=== PATIENT | male | born 2005 | race Caucasian/White ===

== ENCOUNTER 2024-08-08 08:16 | Outpatient (AMB) | payer BC, SELFPAY ==
--- NOTE | 2024-08-08 08:22 | MHC.PC.OV ---
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 Allergies No Known Allergies [No Known Allergies*] Allergy (Verified 08/08/24 08:46) Medication List - Last Reconciled 08/08/24 by Abran Saucedo CNP No Known Home Meds Tobacco use date assessed: 08/08/24 Dental Screening Dental Screen Date: 08/08/24 Did you have a dental visit in the last 12 months?: Yes Did you have a dental problem in the last 6 months where you did not have access to dental care?: No Was dental information given to patient?: Patient has dentist HPI HPI Comments History of Present Illness Details New patient Accompanied by his girlfriend Prior PCP:?[facility] Last office visit/CPE: About 5-6 years Acute issue(s): Myopia -Corrected by prescription glasses Dry scab with flakes -He has tried multiple [id number] shampoo, including Nizorall without improvement PMHx: Headache, myopia SurgHx: None FHx: Dad: HTN. PGM: DM. MGM: breast cancer SocHx: Nonsmoker. Does not drink alcohol. No recreational drugs He notes that he is sexually active, in a monogamous relationship, and has no concerns for STD Last eye exam was over over a year ago at [facility]. He will make an appointment for his next eye exam He has never had the tetanus vaccine He has not had the flu vaccine for this season but intends to be vaccinated [facility] Medical History (Updated 08/08/24 @ 09:04 by Abran Saucedo CNP) Headache Family History (Updated 08/08/24 @ 08:35 by Erika Kapadia) Father High blood pressure Paternal Grandmother High blood pressure Diabetes Maternal Grandmother Cancer Social History Housing: House Patient Tobacco Use Status: Never used Tobacco e-Cigarette/Vaping Use: Never Used service: No Current occupational status: employed Current occupation: [employer] Current occupational exposures/hazards: No Cognitive needs: No Hearing needs: No Vision needs: Yes Questionnaire PHQ-9 Over the last 2 weeks, how often have you been bothered by any of the following problems? 1. Little interest or pleasure in doing things: not at all 2. Feeling down, depressed, or hopeless: not at all 3. Trouble falling or staying asleep, or sleeping too much: several days 4. Feeling tired or having little energy: several days 5. Poor appetite or overeating: not at all 6. Feeling bad about yourself - or that you are a failure or have let yourself or your family down: not at all 7. Trouble concentrating on things, such as reading the newspaper or watching television: not at all 8. Moving or speaking so slowly that other people could have noticed. Or the opposite - being so fidgety or restless that you have been moving around a lot more than usual: not at all 9. Thoughts that you would be better off or of hurting yourself in some way: not at all Total score: 2 Depression Screening Interpretation: Negative Depression Screening Done: Yes 39790 - PHQ-9 Billing: Yes Source: Developed by Drs. Dhruv Hassan, Anny Batres, Gerard Camara and colleagues, with an educational antonio from [employer]. Thrive Questionnaire Date Thrive assessed: 08/08/24 I am a: Patient What is your living situation today?: I have a steady place to live Within the past 12 months, did the food you bought not last and you didn't have the money to get more?: Never true Within the past 12 months, did you worry whether your food would run out before you got money to buy more?: Never true Do you have trouble paying for medicines?: No Do you have trouble getting transportation to medical appointments?: No Do you have trouble paying your heating and electricity bill?: No Do you have trouble taking care of your child, family member or friend?: No Do you have trouble with day-to-day activities such as bathing, preparing meals, shopping, managing finances, etc.?: No Are you currently unemployed and looking for a job?: No Are you interested in more education?: Yes Please select the resources that you would like help with: None Currently or been in a relationship where the following occur: No concerns reported THRIVE Score: 0 AUDIT C Alcohol Use Questionnaire (AUDIT-C) 1. How often do you have a drink containing alcohol?: Never Total Score: 0 Score Reviewed/Action Taken: Yes ANABELLA-7 AMB Questionnaire ANABELLA-7 Date ANABELLA - 7 assessed: 08/08/24 Feeling nervous, anxious, or on edge: 0 = Not at all Not being able to stop or control worryin = Not at all Worrying too much about different things: 0 = Not at all Trouble relaxin = Not at all Being so restless that it is hard to sit still: 0 = Not at all Becoming easily annoyed or irritable: 0 = Not at all Feeling afraid as if something awful might happen: 0 = Not at all Total ANABELLA-7 score (0-4 normal; 5-9 mild; 10-14 moderate; 15-21 severe): 0 Source: Developed by Drs. Dhruv Hassan, Anny Batres, Gerard Camara and colleagues, with an educational antonio from [employer]. ANABELLA-7 Assessment Billing ANABELLA-7 Assessment Tool: ANABELLA-7 Assessment 80193 Review of Systems Const Details: Denies chills, Denies fatigue, Denies fever(s), Denies headache(s) and Denies weakness HEENT Denies change in vision, Denies dizziness, Denies headache(s), Denies hearing loss, Denies nasal congestion, Denies sinus pain, Denies sinus pressure and Denies sore throat Card Denies chest pain, Denies lightheadedness, Denies dyspnea and Denies other (palpitations) Resp Denies cough, Denies dyspnea and Denies wheezing GI Denies abdominal pain, Denies melena, Denies hematochezia, Denies change in bowel habits, Denies dyspepsia and Denies nausea Denies hematuria and Denies dysuria Musc Denies abnormal gait, Denies myalgias, Denies arthralgias, Denies numbness and Denies tingling Skin/Breast Denies rash, Denies unusual bruising and Denies wounds Neuro Denies abnormal gait, Denies dizziness, Denies headache(s), Denies memory loss, Denies numbness, Denies Sensory deficit (Neuro), Denies tingling and Denies weakness Psych Denies anxiety, Denies depression and Denies memory loss Endo Denies cold intolerance, Denies fatigue, Denies heat intolerance, Denies polydipsia and Denies polyuria Felton/Lymph Denies easy bleeding and Denies easy bruising Aller/Immun Denies wheezing Physical exam (Primary Care) Vital Signs: Last Vital Signs Temp 98.0 F 08/08/24 08:27 Pulse 67 08/08/24 08:27 Resp 16 08/08/24 08:27 BP 118/78 08/08/24 08:27 Pulse Ox 98 08/08/24 08:27 Oxygen Delivery Method Room Air 08/08/24 08:27 BMI result Body Mass Index 24.1 Tobacco/Smoking Status: Tobacco use Status Tobacco use date assessed 08/08/24 08/08/24 08:27 Patient Tobacco Use Status Never used Tobacco 08/08/24 08:27 e-Cigarette/Vaping Use Never Used 08/08/24 08:27 PHQ-9: PHQ-9 Score PHQ-9: Total score 2 08/08/24 08:47 Depression Screening Interpretation: Negative Thrive Assessment: Date of Thrive Assessment Date Thrive assessed 08/08/24 08/08/24 08:37 Currently or been in a relationship where the following occur: No concerns reported Const Other: General: no acute distress, well developed, alert and awake Nutritional Appearance: well nourished Orientation/consciousness: patient oriented x3 HENMT Head: Yes normocephalic and Yes atraumatic. Dry, yellow flakes to his entire scalp. Hair on head about 3 inches long Ears: hearing grossly normal bilaterally and TM's normal bilaterally General nose exam: Normal external nose present and Normal nares present Mouth: Normal oral and palatal mucosa present and moist mucous membranes Teeth and gingiva: dentition normal Throat: Yes oropharynx normal Eyes Pupils: Equal, round and reactive pupils present and Pupil accommodation reflex normal EOM: EOMs intact bilaterally Neck Neck: Yes normal visual inspection, Yes no lymphadenopathy and Yes trachea midline Thyroid: Thyroid normal Carotids: no bruits Lymphatic: no lymphadenopathy noted Chest Chest palpation & inspection: normal inspection of the chest Resp Effort & Inspection: normal respiratory effort Auscultation: clear to auscultation bilaterally Cardio Rate: regular rate Rhythm: regular rhythm Heart sounds: S1 normal heart sound present, S2 normal heart sound present, no gallops, no murmurs and no rubs Bruits: no abdominal aortic bruits and no carotid bruits GI Palpation (GI): No Abdominal aortic bruit present, Soft to palpation, nontender, No hepatosplenomegaly present and No Rebound tenderness present Auscultation: normal bowel sounds General: Yes no CVA tenderness Back/Spine/Pelvis Back: no CVA tenderness Cervical Spine: cervical ROM normal and No Cervical spine tenderness Thoracic/Lumbar Spine: thoraco-lumbar ROM normal, No pain with thoraco-lumbar ROM, No thoracic spinal tenderness and No lumbar spinal tenderness Skin General: warm and dry. Normal skin color. Normal skin turgor Lesions: no lesions Rashes: no rashes Trauma: no lacerations or abrasions Wounds: no wounds Nails: normal Neuro General: patient oriented x3, gait normal and CN's II-XI intact bilaterally Cranial nerves: Yes Equal, round and reactive pupils present Cognition (Neuro): normal cognition Gait exam (Neuro): Normal gait present Motor exam (neuro): 5/5 motor strength present throughout Sensory Exam: No Sensory deficit (Neuro) Deep tendon reflexes (DTR's): Right patellar reflex intensity grade: 2+ and Left patellar reflex intensity grade: 2+ Extrem General: Yes normal to inspection, No edema and No calf tenderness Psych Appearance: grossly normal Affect: normal affect Attitude: cooperative Thought process: Normal thought process present Immunizations Boostrix Tdap 2.5 Lf unit-8 mcg-5 Lf/0.5 mL intramuscular syringe Performing Provider: Abran Saucedo CNP Performing Location: [facility] Administered by: Alesha Cueva RN on 08/08/24 09:10 Dose Route Admin Location Dispensed Lot Number Expiration Date [facility] [employer] 0.5 mL IM Left Deltoid 0.5 mL [id number] 08/17/26 65540-789-10 [employer] VIS Given Date VIS Provided VIS Publication Date 08/08/24 Single Vaccine 21 Eligibility Eligibility Date Funding Source Not [facility] Eligible 08/08/24 Private Assessment and Plan Assessment & Plan (1) Normal physical examination, routine: Code(s): Z00.00 - Encounter for general adult medical examination without abnormal findings Plan: No significant physical restrictions or limitations noted Healthy diet and routine exercise encouraged Advised to get lab work done in follow-up for a telehealth visit in 2-3 weeks for labs review Return with symptoms or concerns Verbalized understanding and agreed with the treatment plan (2) Dandruff: Code(s): L21.0 - Seborrhea capitis Plan: Dry, yellow flakes to his entire scalp. Hair on head about 3 inches long Advised to trial Selsun Blue shampoo 2-3 times weekly Follow-up if dandruff does not resolve Verbalized understanding and agreed with the plan (3) Myopia: Code(s): H52.10 - Myopia, unspecified eye Plan: Corrected by prescription glasses His last eye exam was over a year ago. He will call and schedule an appointment for an eye exam (4) Vaccine for tetanus toxoid: Code(s): Z23 - Encounter for immunization Plan: He has never had the tetanus vaccine Tetanus vaccine administered by our office nurse today (5) Vaccine counseling: Code(s): Z71.85 - Encounter for immunization safety counseling Plan: He has not had the flu vaccine for this season but intends to be vaccinated Instructed on importance of vaccination and encouraged to get vaccinated for the flu. He may get the vaccine from his local pharmacy Verbalized understanding and agreed with the plan (6) Laboratory tests ordered as part of a complete physical exam (CPE): Code(s): Z00.00 - Encounter for general adult medical examination without abnormal findings Plan: Fasting labs ordered as part of a complete physical exam. Advised to fast for at least 10 hours before getting labs drawn. May drink water Verbalized understanding and agreed with treatment plan. Orders: Orders Complete Blood Count Auto Diff Today Z00.00 - Encounter for general adult medical examination without abnormal findings Comprehensive [place]. Panel Fast Today Z00.00 - Encounter for general adult medical examination without abnormal findings Lipid Panel Today Z00.00 - Encounter for general adult medical examination without abnormal findings TDaP Immunization Today Z23 - Encounter for immunization TSH reflex Free T4 Today Z00.00 - Encounter for general adult medical examination without abnormal findings UA CC w/rflx Micro + Cult Today Z00.00 - Encounter for general adult medical examination without abnormal findings Medications: New Boostrix Tdap (diphth,pertus(acell),tetanus) 0.5 mL IM ONCE 0.5 mL 0RF NS Z23 - Encounter for immunization Coding Level of Care Code New Pt Level 3 (61615) New Pt Prev Care 18-39yr(91652 Diagnoses Normal physical examination, routine Z00.00 Dandruff L21.0 Myopia H52.10 Vaccine for tetanus toxoid Z23 Vaccine counseling Z71.85 Laboratory tests ordered as part of a complete physical exam (CPE) Z00.00 Additional Codes ANABELLA-7 Assessment Billing - ANABELLA-7 Assessment Tool: ANABELLA-7 Assessment 25529 ([id number])
[2024-08-08 08:27] VITALS: BP 118/78; PULSE 67; RESP 16; TEMP 36.7; O2SAT 98; BMI 24.1
== END 2024-08-08 09:13 | disposition home or self-care (01) ==
PROVIDERS: PCP Pediatrics; Visit Provider Nurse Practitioner Family
DX: Z00.00 Encounter for general adult medical examination without abnormal findings (principal); L21.0 Seborrhea capitis; Z23 Encounter for immunization; Z71.85 Encounter for immunization safety counseling

== ENCOUNTER → 2024-08-08 08:16 | Outpatient (BNVA) | payer BC, SELFPAY | PROVIDERS: PCP Pediatrics; Visit Provider Nurse Practitioner Family | DX: Z00.01 Encounter for general adult medical examination with abnormal findings (principal); L21.0 Seborrhea capitis; H52.10 Myopia, unspecified eye; Z71.85 Encounter for immunization safety counseling; Z23 Encounter for immunization | CPT/HCPCS: 90471; 90715; 96127 ==

== ENCOUNTER 2024-10-01 09:53 | Outpatient (REF) | payer BC, SELFPAY ==
[2024-10-01 10:28] LABS: MANUAL DIFF FLAG NO
[2024-10-01 11:11] LABS: Basophils Percent Auto 0.6 % (0-2); Eosinophils Absolute Auto 0.1 X10*3/uL (0.0-0.4); Eosinophils Percent Auto 1.2 % (0-4); Hematocrit 43.4 % (42.0-52.0); Hemoglobin 14.9 g/dl (14.0-18.0); Imm Gran Abs Auto 0.05 X10*3/uL (0.00-0.03); Imm Gran Pct Auto 0.8 % (0.0-0.4); Lymphocytes Absolute Auto 2.3 X10*3/uL (1.2-4.9); Lymphocytes Percent Auto 34.2 % (20-40); Mean Corpuscular HGB Conc 34.3 g/dl (31.0-36.0); Mean Corpuscular Hemoglobin 28.5 pg (27.0-33.0); Monocytes Absolute Auto 0.6 X10*3/uL (0.1-1.2); Neutrophils Absolute Auto 3.6 x10*3/uL (2.0-8.3); Neutrophils Percent Auto 54.2 % (45-73); Platelet Count 225 X10*3/uL (160-400); Red Blood Count 5.23 X10*6/uL (4.60-5.80); Red Cell Distribution Width 12.7 % (11.0-16.0); White Blood Count 6.6 X10*3/uL (4.8-10.8)
[2024-10-01 11:30] LABS: Appearance Urine Clear; Color Urine Yellow; Glucose Urine UA Negative (Negative); Leukocyte Esterase Urine Negative (Negative); Nitrite Urine Negative (Negative); PH 8.5 (5.0-9.0); Specific Gravity - Urine 1.025 (1.005-1.025); Urine Blood Negative (Negative); Urine Ketones Negative (Negative); Urine Protein Trace mg/dL (Neg-Trace)
[2024-10-01 11:49] LABS: Alanine Aminotransferase 22 U/L (0-40); Albumin Level 4.6 g/dL (3.5-5.0); Alkaline Phosphatase 78 U/L (39-117); Anion Gap 11 (12-20); Aspartate Amino Transferase 24 U/L (5-37); Blood Urea Nitrogen 11 mg/dL (9-16); Carbon Dioxide 26 mmol/L (22-29); Chloride 106 mmol/L (96-108); Cholesterol 193 mg/dL (<200); Estimated Glomerular Filt Rate > 60; Glucose Fasting 95 mg/dL (60-99); HDL Cholesterol 49 mg/dL (>40); LDL Cholesterol Calculated 126 mg/dL (<100); Potassium 3.8 mmol/L (3.3-5.1); Sodium 139 mmol/L (135-145); Total Protein 7.6 g/dL (6.5-8.0); Triglycerides 94 mg/dL (<150)
[2024-10-01 12:06] LABS: TSH reflex Free T4 0.77 uIU/mL (0.32-4.0)
== END 2024-10-01 09:54 | disposition home or self-care (01) ==
LOC: HO.LAB 09:53
PROVIDERS: PCP Nurse Practitioner Family; Visit Provider Nurse Practitioner Family
DX: Z00.00 Encounter for general adult medical examination without abnormal findings (principal)
CPT/HCPCS: 36415; 80053; 80061; 81003; 84443; 85025

== ENCOUNTER 2024-11-10 14:19 | Outpatient (AMB) | payer BC, SELFPAY ==
--- NOTE | 2024-11-10 14:04 | MHC.PC.OV ---
Intake Visit Reasons: lab review Intake Note: patient here for telehealth for lab review. 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 He started exercising. However, he has been consuming significant amount of fast foods. He offers no complaints and denies acute symptoms at this time. [facility] Medical History (Updated 11/10/24 @ 14:51 by Abran Saucedo CNP) Headache Family History (Updated 08/08/24 @ 08:35 by Erika Kapadia MA) Father High blood pressure Paternal Grandmother High blood pressure Diabetes Maternal Grandmother Cancer Social History Housing: House Patient Tobacco Use Status: Never used Tobacco e-Cigarette/Vaping Use: Never Used service: No Current occupational status: employed Current occupation: [employer] Current occupational exposures/hazards: No Cognitive needs: No Hearing needs: No Vision needs: Yes Questionnaire Thrive Questionnaire Date Thrive assessed: 08/08/24 ANABELLA-7 AMB Questionnaire ANABELLA-7 Date ANABELLA - 7 assessed: 08/08/24 Source: Developed by Drs. Dhurv Hassan, Anny Batres, Gerard Camara and colleagues, with an educational antonio from [employer]. Review of Systems Const Details: Const Denies chills, Denies fatigue, Denies fever(s), Denies headache(s) and Denies weakness ENT Denies dizziness and Denies headache(s) Card Denies chest pain, Denies lightheadedness, Denies dyspnea and Denies other (Palpitations) Resp Denies cough, Denies dyspnea, Denies wheezing and Denies other ( shortness of breath) GI Denies abdominal pain, Denies melena, Denies hematochezia, Denies change in bowel habits, Denies dyspepsia and Denies nausea Denies hematuria and Denies dysuria Musc Denies abnormal gait, Denies myalgias, Denies arthralgias, Denies numbness and Denies tingling Skin/Breast Denies rash, Denies unusual bruising and Denies wounds Neuro Denies abnormal gait, Denies dizziness, Denies headache(s), Denies memory loss, Denies numbness, Denies Sensory deficit (Neuro), Denies tingling and Denies weakness Psych Denies anxiety, Denies depression, Denies memory loss Endo Denies cold intolerance, Denies fatigue, Denies heat intolerance, Denies polydipsia and Denies polyuria Aller/Immun Denies wheezing Physical exam (Primary Care) Tobacco/Smoking Status: Tobacco use Status Tobacco use date assessed 11/10/24 11/10/24 14:06 Patient Tobacco Use Status Never used Tobacco 11/10/24 14:06 e-Cigarette/Vaping Use Never Used 11/10/24 14:06 Thrive Assessment: Date of Thrive Assessment Date Thrive assessed 08/08/24 11/10/24 14:06 Const Other: Telehealth visit. No physical exam Telehealth Telehealth Telehealth Platform: Telephone Location of provider rendering services: practice address Location of patient: address on file Patient Identification confirmed using: Name, : Yes Telehealth method: voice only Patient verbally consented to treatment: Yes Patient verbally consented to billing insurance company: Yes Patient informed of any privacy concerns related to visit: Yes Coding Level of Care Code Tele Est Pt Level 3 (08077) Diagnoses Elevated LDL cholesterol level E78.00 Time Spent (min) 10 Assessment & Plan Assessment & Plan (1) Elevated LDL cholesterol level: Code(s): E78.00 - Pure hypercholesterolemia, unspecified Category: Medical Plan: Recent lab results reviewed with the patient; unremarkable findings except for slightly elevated LDL, 126. Total cholesterol is on the high end of normal, 193. Advised to limit foods high in saturated fat and avoid foods high in trans fat. Routine exercise encouraged. Will check lipid panel levels periodically or if symptomatic. Follow-up for an extended physical exam on or after 08/08/2025. Return with symptoms or concerns. Verbalized understanding and agreed with the treatment plan.
== END 2024-11-10 15:03 | disposition home or self-care (01) ==
LOC: HO.HMCFM 14:19
PROVIDERS: PCP Nurse Practitioner Family; Visit Provider Nurse Practitioner Family
DX: E78.00 Pure hypercholesterolemia, unspecified (principal)

== ENCOUNTER → 2024-11-10 14:19 | Outpatient (BNVA) | payer BC, SELFPAY | PROVIDERS: PCP Nurse Practitioner Family; Visit Provider Nurse Practitioner Family ==

== ENCOUNTER 2025-09-08 08:05 | Outpatient (REF) | payer BC, SELFPAY ==
[2025-09-08 11:28] LABS: MANUAL DIFF FLAG NO
[2025-09-08 11:37] LABS: Hematocrit 43.9 % (42.0-52.0); Hemoglobin 14.2 g/dl (14.0-18.0); Imm Gran Abs Auto 0.40 X10*3/uL (0.00-0.03); Imm Gran Pct Auto 4.0 % (0.0-0.4); Lymphocytes Absolute Auto 1.9 X10*3/uL (1.2-4.9); Mean Corpuscular HGB Conc 32.3 g/dl (31.0-36.0); Mean Corpuscular Hemoglobin 27.5 pg (27.0-33.0); Mean Corpuscular Volume 85.1 fL (80.0-98.0); NRBC Abs Auto 0.000 X10*3/uL (0.0-0.012); NRBC Pct Auto 0.0 /100WBC (0.0-0.2); Platelet Count 290 X10*3/uL (160-400); Red Blood Count 5.16 X10*6/uL (4.60-5.80); White Blood Count 10.1 X10*3/uL (4.8-10.8)
[2025-09-08 11:41] LABS: Appearance Urine Clear; Glucose Urine UA Negative (Negative); PH 8.0 (5.0-9.0); Specific Gravity - Urine 1.015 (1.005-1.025)
[2025-09-08 12:03] LABS: Alanine Aminotransferase 18 U/L (0-40); Albumin Level 4.9 g/dL (3.5-5.0); Alkaline Phosphatase 69 U/L (39-117); Anion Gap 14 (12-20); Aspartate Amino Transferase 24 U/L (5-37); Blood Urea Nitrogen 9 mg/dL (9-16); Calcium 9.6 mg/dL (8.4-10.2); Carbon Dioxide 28 mmol/L (22-29); Chloride 104 mmol/L (96-108); Cholesterol 193 mg/dL (<200); Estimated Glomerular Filt Rate > 60; HDL Cholesterol 44 mg/dL (>40); Potassium 3.8 mmol/L (3.3-5.1); Sodium 142 mmol/L (135-145); Total Protein 8.1 g/dL (6.5-8.0); Triglycerides 98 mg/dL (<150)
[2025-09-08 12:30] LABS: Microalbum/Creatinine Ratio Ur 9.1 ug/mg cr (<30)
== END 2025-09-08 08:06 | disposition home or self-care (01) ==
LOC: HO.WFDLDS 08:05
PROVIDERS: PCP Nurse Practitioner Family; Visit Provider Nurse Practitioner Family
DX: Z00.00 Encounter for general adult medical examination without abnormal findings (principal); G47.9 Sleep disorder, unspecified; Z23 Encounter for immunization
CPT/HCPCS: 36415; 80053; 80061; 81003; 82043; 82306; 82570; 84443; 85025; 90471; 90656; 96127

== ENCOUNTER 2025-09-08 08:05 | Outpatient (AMB) | payer BC, SELFPAY ==
--- NOTE | 2025-09-08 08:06 | A.OFFPC_ITS ---
Vital Signs 09/08/25 08:14 Height 5 ft 7 in Weight 156 lb BMI 24.4 BP 112/64 Blood Pressure Location Rt brachial Position Sitting Respiration 16 Pulse 75 Pulse Source Pulse Oximeter Temp 97.8 F Temp Source Oral Pulse Oximetry (%) 96 Oxygen Delivery Method Room Air Intake Visit Reasons: Annual PE Intake Note: patient here for CPE [employer] Required: No Allergies No Known Allergies (No Known Allergies*) Allergy (Verified 09/08/25 08:18) Medication List - Last Reconciled 09/08/25 by Abran Saucedo CNP No Known Home Meds Tobacco use date assessed: 09/08/25 Dental Screening Dental Screen Date: 09/08/25 Did you have a dental visit in the last 12 months?: No Did you have a dental problem in the last 6 months where you did not have access to dental care?: No Was dental information given to patient?: Patient has dentist HPI HPI Comments History of Present Illness Details 20-year-old male, accompanied by his gir lfriend, presents for an extended physical exam. He is not on prescription medication. Denies current medical or psychiatric symptoms. Acute issue(s) - None Past Medical History - Headache, myopia, elevated LDL Social History - Nonsmoker. History of vaping 2-3 years ago. Does not drink alcohol. Denies recreational drug use - He generally eats unhealthy - costumes lots of fast foods. Exercises routinely. Reports difficulty falling and staying asleep - sleeps an average of 6 hours, snores all the times, never had a sleep study - He is sexually active, in a monogamous relationship, and has no concern for STDs Health maintenance - Last eye exam was in 05/2025 with [facility]. He has an eye exam scheduled with them today - Last dental visit was in 11/2023; yobany raged to schedule an appointment with his dentist for routine dental care - Last Tdap was in 08/08/2024 - Has not been vaccinated for the flu ; receives vaccination today Specialists - None PFSH Medical History Headache Family History Father High blood pressure Paternal Grandmother High blood pressure Diabetes Maternal Grandmother Cancer Social History Housing: House Patient Tobacco Use Status: Never used Tobacco e-Cigarette/Vaping Use: Never Used Second Hand Smoke Exposure: No service: No Current occupational status: employed Current occupation: [employer] Current occupational exposures/hazards: No Cognitive needs: No Hearing needs: No Vision needs: Yes Questionnaire PHQ-9 Over the last 2 weeks, how often have you been bothered by any of the following problems? 1. Little interest or pleasure in doing things: several days 2. Feeling down, depressed, or hopeless: several days 3. Trouble falling or staying asleep, or sleeping too much: nearly every day 4. Feeling tired or having little energy: several days 5. Poor appetite or overeating: not at all 6. Feeling bad about yourself - or that you are a failure or have let yourself or your family down: several days 7. Trouble concentrating on things, such as reading the newspaper or watching television: not at all 8. Moving or speaking so slowly that other people could have noticed. Or the opposite - being so fidgety or restless that you have been moving around a lot more than usual: not at all 9. Thoughts that you would be better off or of hurting yourself in some way: not at all Total score: 7 Depression Screening Interpretation: Positive Depression Screening Done: Yes 99695 - PHQ-9 Billing: Yes Source: Developed by Drs. Dhruv Hassan, Anny Batres, Gerard Camara and colleagues, with an educational antonio from [employer]. Thrive Questionnaire Date Thrive assessed: 09/08/25 I am a: Patient What is your living situation today?: I have a steady place to live Within the past 12 months, did the food you bought not last and you didn't have the money to get more?: I choose not to answer this question Within the past 12 months, did you worry whether your food would run out before you got money to buy more?: I choose not to answer this question Do you have trouble paying for medicines?: I choose not to answer this question Do you have trouble getting transportation to medical appointments?: I choose not to answer this question Do you have trouble paying your heating and electricity bill?: I choose not to answer this question Do you have trouble taking care of your child, family member or friend?: I choose not to answer this question Do you have trouble with day-to-day activities such as bathing, preparing meals, shopping, managing finances, etc.?: I choose not to answer this question Are you currently unemployed and looking for a job?: I choose not to answer this question Are you interested in more education?: I choose not to answer this question Please select the resources that you would like help with: None Currently or been in a relationship where the following occur: I choose not to answer THRIVE Score: 0 AUDIT C Alcohol Use Questionnaire (AUDIT-C) 1. How often do you have a drink containing alcohol?: Never 3. How often do you have six or more drinks on one occasion?: Never Total Score: 0 Score Reviewed/Action Taken: Yes ANABELLA-7 AMB Questionnaire ANABELLA-7 Date ANABELLA - 7 assessed: 09/08/25 Feeling nervous, anxious, or on edge: 1 = Several days Not being able to stop or control worryin = Several days Worrying too much about different things: 1 = Several days Trouble relaxin = Several days Being so restless that it is hard to sit still: 1 = Several days Becoming easily annoyed or irritable: 2 = More than half the days Feeling afraid as if something awful might happen: 1 = Several days Total ANABELLA-7 score (0-4 normal; 5-9 mild; 10-14 moderate; 15-21 severe): 8 Source: Developed by Drs. Dhruv Hassan, Anny Batres, Gerard Camara and colleagues, with an educational antonio from [employer]. ANABELLA-7 Assessment Billing ANABELLA-7 Assessment Tool: ANABELLA-7 Assessment 73824 Review of Systems Const Details: Denies chills, Denies fatigue, Denies fever(s), Denies headache(s) and Denies weakness HEENT Denies change in vision, Denies dizziness, Denies headache(s), Denies hearing loss, Denies nasal congestion, Denies sinus pain, Denies sinus pressure and Denies sore throat Card Denies chest pain, Denies lightheadedness, Denies dyspnea and Denies other (palpitations) Resp Denies cough, Denies dyspnea and Denies wheezing GI Denies abdominal pain, Denies melena, Denies hematochezia, Denies change in bowel habits, Denies dyspepsia and Denies nausea Denies hematuria and Denies dysuria Musc Denies abnormal gait, Denies myalgias, Denies arthralgias, Denies numbness and Denies tingling Skin/Breast Denies rash, Denies unusual bruising and Denies wounds Neuro Denies abnormal gait, Denies dizziness, Denies headache(s), Denies memory loss, Denies numbness, Denies Sensory deficit (Neuro), Denies tingling and Denies weakness Psych Denies anxiety, Denies depression and Denies memory loss Endo Denies cold intolerance, Denies fatigue, Denies heat intolerance, Denies polydipsia and Denies polyuria Felton/Lymph Denies easy bleeding and Denies easy bruising Aller/Immun Denies wheezing Physical exam (Primary Care) Vital Signs: Last Vital Signs Temp 97.8 F 09/08/25 08:14 Pulse 75 09/08/25 08:14 Resp 16 09/08/25 08:14 BP 112/64 09/08/25 08:14 Pulse Ox 96 09/08/25 08:14 Oxygen Delivery Method Room Air 09/08/25 08:14 BMI result Body Mass Index 24.4 Tobacco/Smoking Status: Tobacco use Status Tobacco use date assessed 09/08/25 09/08/25 08:13 Patient Tobacco Use Status Never used Tobacco 09/08/25 08:09 e-Cigarette/Vaping Use Never Used 09/08/25 08:09 PHQ-9: PHQ-9 Score PHQ-9: Total score 7 09/08/25 08:45 Depression Screening Interpretation: Positive Thrive Assessment: Date of Thrive Assessment Date Thrive assessed 09/08/25 09/08/25 08:09 Currently or been in a relationship where the following occur: I choose not to answer Const Other: General: no acute distress, well developed, alert and awake Nutritional Appearance: well nourished Orientation/consciousness: patient oriented x3 HENMT Head: Yes normocephalic and Yes atraumatic Ears: hearing grossly normal bilaterally and TM's normal bilaterally General nose exam: Normal external nose present and Normal nares present Mouth: Normal oral and palatal mucosa present and moist mucous membranes Teeth and gingiva: dentition normal Throat: Yes oropharynx normal Eyes Pupils: Equal, round and reactive pupils present and Pupil accommodation reflex normal EOM: EOMs intact bilaterally Neck Neck: Yes normal visual inspection, Yes no lymphadenopathy and Yes trachea midline Thyroid: Thyroid normal Carotids: no bruits Lymphatic: no lymphadenopathy noted Chest Chest palpation & inspection: normal inspection of the chest Resp Effort & Inspection: normal respiratory effort Auscultation: clear to auscultation bilaterally Cardio Rate: regular rate Rhythm: regular rhythm Heart sounds: S1 normal heart sound present, S2 normal heart sound present, no gallops, no murmurs and no rubs Bruits: no abdominal aortic bruits and no carotid bruits GI Palpation (GI): No Abdominal aortic bruit present, Soft to palpation, nontender, No hepatosplenomegaly present and No Rebound tenderness present Auscultation: normal bowel sounds General: Yes no CVA tenderness Back/Spine/Pelvis Back: no CVA tenderness Cervical Spine: cervical ROM normal and No Cervical spine tenderness Thoracic/Lumbar Spine: thoraco-lumbar ROM normal, No pain with thoraco-lumbar ROM, No thoracic spinal tenderness and No lumbar spinal tenderness Skin General: warm and dry. Normal skin color. Normal skin turgor Lesions: no lesions Rashes: no rashes Trauma: no lacerations or abrasions Wounds: no wounds Nails: normal Neuro General: patient oriented x3, gait normal and CN's II-XI intact bilaterally Cranial nerves: Yes Equal, round and reactive pupils present Cognition (Neuro): normal cognition Gait exam (Neuro): Normal gait present Motor exam (neuro): 5/5 motor strength present throughout Sensory Exam: No Sensory deficit (Neuro) Deep tendon reflexes (DTR's): Right patellar reflex intensity grade: 2+ and Left patellar reflex intensity grade: 2+ Extrem General: Yes normal to inspection, No edema and No calf tenderness Psych Appearance: grossly normal Affect: normal affect Attitude: cooperative Thought process: Normal thought process present Office Procedures Flu Questionnaire Does the patient have a severe egg allergy?: No Does the patient have severe life threatening allergies?: No Does the patient have a fever or illness today?: No Has the patient ever had Guillain-[place] Syndrome?: No Has the patient ever had any past reaction to a flu shot?: No Immunizations Fluarix [id number] (PF) 45 mcg (15 mcg x 3)/0.5 mL IM syringe Performing Provider: Abran Saucedo CNP Performing Location: [facility] Administered by: Martín Ricci RN on 09/08/25 08:42 Dose Route Admin Location Dispensed Lot Number Expiration Date [facility] Car Conditioner 0.5 mL IM Right Deltoid 0.5 mL [id number] 05/08/26 [id number] [employer] VIS Given Date VIS Provided VIS Publication Date 09/08/25 Single Vaccine 24 Eligibility Eligibility Date Funding Source Not [facility] Eligible 09/08/25 Private Coding Level of Care Code Est Pt Level 3 (27356) Est Pt Prev Care 18-39y(97059) Diagnoses Normal physical examination, routine Z00.00 Sleep disturbance G47.9 Laboratory tests ordered as part of a complete physical exam (CPE) Z00.00 Additional Codes ANABELLA-7 Assessment Billing - ANABELLA-7 Assessment Tool: ANABELLA-7 Assessment 37614 ([id number]) PHQ-9 - 19440 - PHQ-9 Billing: Yes ([id number]) Assessment & Plan Assessment & Plan (1) Normal physical examination, routine: Code(s): Z00.00 - Encounter for general adult medical examination without abnormal findings Category: Medical Plan: No significant functional limitation noted. Healthy diet and routine exercise encouraged. Perform lab work and follow-up for telehealth visit in 2-3 weeks. Return sooner with symptoms or concerns. Verbalized understanding and agreed with the plan. (2) Sleep disturbance: Code(s): G47.9 - Sleep disorder, unspecified Category: Medical Plan: Reports difficulty falling and staying asleep - sleeps an average of 6 hours, snores all the times, never had a sleep study. Instructed on sleep hygiene. May take melatonin as needed. Referred to sleep medicine for a sleep study. Follow-up as needed. Verbalized understanding and agreed with the plan. (3) Laboratory tests ordered as part of a complete physical exam (CPE): Code(s): Z00.00 - Encounter for general adult medical examination without abnormal findings Category: Medical Plan: Fasting labs ordered as part of a complete physical exam. Advised to fast for at least 10 hours before getting labs drawn. May drink water Verbalized understanding and agreed with treatment plan. Orders: Orders Lipid Panel Today Z00.00 - Encounter for general adult medical examination without abnormal findings TSH reflex Free T4 Today Z00.00 - Encounter for general adult medical examination without abnormal findings UA CC w/rflx Micro + Cult Today Z00.00 - Encounter for general adult medical examination without abnormal findings Microalbumin, Random (w Creat) Today Z00.00 - Encounter for general adult medical examination without abnormal findings Influenza [id number] Immunization Today Z23 - Encounter for immunization Complete Blood Count Auto Diff Today Z00.00 - Encounter for general adult medical examination without abnormal findings Comprehensive [place]. Panel Fast Today Z00.00 - Encounter for general adult medical examination without abnormal findings Vitamin D 25-OH Total Today Z00.00 - Encounter for general adult medical examination without abnormal findings Referrals Sleep Medicine Referral G47.9 - Sleep disorder, unspecified
--- OUTSIDE RECORDS SUMMARY | 2025-09-08 08:10 | XMS_ITS ---
Author Name [facility] Organization Unknown Care Team Organization Name Specialty Phone Email Start Date End Da te [facility] Elian [facility] 09/16/20222023
[2025-09-08 08:14] VITALS: BP 112/64; PULSE 75; RESP 16; TEMP 36.6; O2SAT 96; BMI 24.4
== END 2025-09-08 08:41 | disposition home or self-care (01) ==
LOC: HO.HMCFM 08:06
PROVIDERS: PCP Nurse Practitioner Family; Visit Provider Nurse Practitioner Family
DX: Z00.00 Encounter for general adult medical examination without abnormal findings (principal); G47.9 Sleep disorder, unspecified; Z23 Encounter for immunization